=== PATIENT | female | born 1935 | race Caucasian/White ===

== ENCOUNTER 2018-10-06 06:13 | Day surgery (SDC) ==
[2018-10-02 13:12] LABS: HEMATOCRIT 42.1 % (37.0-47.0); HEMOGLOBIN 14.8 g/dL (12.0-16.0); MCH 31.3 PG (27-31); MCHC 35.2 g/dL (33-37); MPV 9.3 FL (7.4-10.4); RBC 4.73 XMIL (4.2-5.4); RDW 13.1 % (11.5-14.5); WBC 8.04 X1000 (4.8-10.8)
[2018-10-02 13:22] LABS: ESTIMATED GFR > 60
[2018-10-02 13:34] LABS: AGAP 13; BUN 7 mg/dL (8-22); CALCIUM 9.7 mg/dL (8.8-10.2); CHLORIDE 89 mmol/L (98-107); COSMO 257; CREATININE 0.6 mg/dL (0.5-0.9); GLUCOSE 99 mg/dL (70-104); POTASSIUM 3.7 mmol/L (3.5-5.1); SODIUM 129 mmol/L (136-145); TCO2 27 mmol/L (25-35)
--- NOTE | 2018-10-02 13:59 | EKG Report ---
Test Performed on : 10/02/2018 12:57:16 PM Test Reason : PAT Blood Pressure : / mmHG Vent. Rate : 067 BPM Atrial Rate : 067 BPM P-R Int : 214 ms QRS Dur : 082 ms QT Int : 402 ms P-R-T Axes : 053 030 039 degrees QTc Int : 424 ms Sinus rhythm. with 1st degree AV block. Otherwise normal ECG No previous ECGs available Unconfirmed Result
[2018-10-06] MEDS ORDERED: PEPCID ONE (06:48)
[2018-10-06] MEDS ORDERED: LR 1,000 ML ONE (06:49)
[2018-10-06] MEDS ORDERED: REGLAN ONE (06:49)
[2018-10-06] MEDS ORDERED: KEFZOL 2 GM/D5W 2 GM/50 ML IVPB ONE (06:49)
[2018-10-06] MEDS ORDERED: FENTANYL ONE (07:36)
[2018-10-06] MEDS ORDERED: DIPRIVAN 1% ONE (07:36)
[2018-10-06] MEDS ORDERED: XYLOCAINE-MPF 2% ONE (07:37)
--- NOTE | 2018-10-06 07:41 | Diag Imaging Result Doc PS360 ---
LYMPHOSCINTIGRAPHY W/IMG - 10/06/2018 INDICATION: RT BREAST MASTECTOMY COMPARISON: None FINDINGS: 520 uCi of radiotracer was injected into the right breast. After the appropriate delay, there was successful visualization of at least one sentinel lymph node in the axilla. IMPRESSION: Successful lymphoscintigraphy of the breast. Electronically signed by Alexy Jones 10/06/2018 7:38 AM
[2018-10-06] MEDS ORDERED: METHYLENE BLUE 0.5% ONE (07:44)
[2018-10-06] MEDS ORDERED: SENSORCAINE-MPF 0.5%/EPI 1:200,000 ONE (07:45)
[2018-10-06] MEDS ORDERED: SODIUM CHLORIDE 0.9% ONE (07:45)
[2018-10-06] MEDS ORDERED: EPHEDRINE ONE (08:24)
[2018-10-06] MEDS ORDERED: ZOFRAN ONE (09:08)
[2018-10-06] MEDS ORDERED: DECADRON ONE (09:08)
[2018-10-06] MEDS: DILAUDID ONE ×2 (10:33→10:40)
[2018-10-06] MEDS ORDERED: LR 1,000 ML IV SCH (11:03)
[2018-10-06] MEDS ORDERED: ZOFRAN IV PRN (11:03)
[2018-10-06] MEDS ORDERED: MORPHINE IV PRN (11:03)
--- NOTE | 2018-10-06 11:11 | OPERATIVE NOTE ---
PROCEDURE DATE: 10/06/2018 PREOPERATIVE DIAGNOSIS: Right breast cancer. POSTOPERATIVE DIAGNOSIS: Right breast cancer. PROCEDURES PERFORMED: 1. Right total mastectomy. 2. Ensign lymph node biopsy of the right axilla. 3. Intraoperative lymphatic mapping. ESTIMATED BLOOD LOSS: 20 mL. SPECIMENS: 1. Right breast, stitch deal medial. 2. Ensign node #1. 3. Ensign node #2. 4. Nonsentinel lymph node tissue. ANESTHESIA: General. INDICATION: An 83-year-old female who has a biopsy confirmed subareolar breast carcinoma. OPERATIVE FINDINGS: The previously noted mass in the right mirela-subareolar breast was noted. The ex vivo count of sentinel node #1 was 18,360. Ensign node was 3640 and the final bed count fell to less than 10%. OPERATIVE NOTE: The risks, benefits, and alternatives were discussed with the patient. She consented to the procedure. She was seen preoperatively. The surgical site was confirmed and marked. She was injected in her breast with the technetium tracer. She was then taken to the operating room and placed in the supine position. General anesthesia was induced without complication. All bony prominences were padded. Her right chest, neck, and upper extremity were prepped, excluding the hand from the field, with chlorhexidine solution, and draped in the usual fashion. After a time-out, we planned an elliptical incision oriented obliquely up towards the axilla. We made a lateral incision after injecting methylene blue and massaging this for several minutes. We carried this down to the axilla and identified two avid nodes that we passed off for frozen section. These were found to be benign. We also sent some nonsentinel node tissue that was overlying the sentinel nodes for permanent section. At this point, we extended our incision medially and then created a superior flap up to the level of the clavipectoral fascia, medial to the sternum, laterally out to the latissimus, and inferiorly down to the rectus on our inferior flap. The breast tissue was removed off the pectoralis including the fascia. It was oriented, passing it off. We confirmed hemostasis at each location. We did also clip afferent lymphatics and small vessels leading up to the sentinel nodes to hopefully prevent a seroma postoperatively. We performed a Valsalva maneuver after irrigating and confirming hemostasis. I placed two drains, the anterior drain underneath the mastectomy flap and one laterally in the axilla. These were Cy drains. There were no pathologically enlarged lymph nodes noted in the axilla. We reapproximated the deep dermis with interrupted 3-0 Vicryl sutures. The skin was closed with clips and a gauze Medipore dressing was applied. She tolerated it well. No complications. She was awoken and transferred to recovery. I spoke with the family. cc: Odalis Maria MD
[2018-10-06] MEDS: NORCO-5 PO PRN ×2 (13:24→21:50)
[2018-10-06 13:42] LABS: URINE SOURCE CLEAN CATCH
[2018-10-06 13:46] LABS: BILIRUBIN URINE NEGATIVE (NEGATIVE); BLOOD URINE NEGATIVE (NEGATIVE); COLOR YELLOW; GLUCOSE URINE NEGATIVE (NEGATIVE); KETONE URINE NEGATIVE (NEGATIVE); LEUKOCYTES URINE NEGATIVE (NEGATIVE); NITRITE URINE NEGATIVE (NEGATIVE); PROTEIN URINE NEGATIVE (NEGATIVE); TURBIDITY URINE CLEAR (CLEAR); UROBILINOGEN URINE NORMAL (NORMAL)
[2018-10-06 13:47] LABS: UR EPITHELIAL CELLS <10 /HPF (<10); URINE BACTERIA 1+ /HPF; URINE RBC <10 /HPF (<10); URINE WBC <10 /HPF (<10)
[2018-10-06] MEDS ORDERED: ZOCOR PO SCH (21:00)
[2018-10-07 08:13] VITALS: BP 125/64
[2018-10-07] MEDS ORDERED: NORVASC PO SCH (09:00)
[2018-10-07] MEDS ORDERED: PERIDEX MT SCH (09:00)
[2018-10-07] MEDS ORDERED: NEXIUM PO SCH (09:00)
[2018-10-07] MEDS ORDERED: TOPROL XL PO SCH (09:00)
== END 2018-10-07 10:41 | disposition home or self-care (01) ==
LOC: 4N 06:13 → OPS 06:13
PROVIDERS: ATTEND Surgery
CPT/HCPCS: 78195; 80048; 81001; 82948; 85027; 88305; 88307; 88331; 93005; 93010; 94761; 94799; A9270; A9520; J0690; J1100; J1170; J2405; J3010; J7120; Q9968; XXXXX